=== PATIENT | female | born 1955 | race Caucasian/White ===

== ENCOUNTER 2019-06-25 10:07 | Emergency (ER) | payer SELFPAY ==
[2019-06-25] MEDS ORDERED: Ondansetron 4 MG/2 ML SDV IVPUSH ONE (10:11)
[2019-06-25] MEDS ORDERED: Sodium Chloride 0.9% 1,000 ML IV ONE ×2 (10:11→11:47)
[2019-06-25] MEDS ORDERED: Sodium Chloride 0.9% 10 ML Syringe FLUSH PRN (10:19)
--- NOTE | 2019-06-25 10:31 | CT ---
[id number] CT/CT Head Stroke Protocol Exam: CT Head Stroke Protocol Clinical Data: NEUROLOGIC DEFICIT COMPARISON: NO PREVIOUS SIMILAR EXAM IS AVAILABLE FINDINGS: There is no mass or mass effect There is no hemorrhage or hydrocephalus There are no extra-axial fluid collections CT angiography would be helpful Report was called at time of this dictation There are no sites of abnormal attenuation IMPRESSION: NEGATIVE PLAIN CT BRAIN Rickey Martins MD 06/25/19 1030 Thank you for allowing us to participate in the care of your patient.
--- NOTE | 2019-06-25 10:37 | CR ---
[id number] RAD/RAD Chest PA or AP 1V EXAM: RAD Chest PA or AP 1V INDICATION: SYNCOPE. COMPARISON: None. DISCUSSION: Cardiomediastinal silhouette is normal in size and contour. No infiltrate, effusion, pneumothorax, or edema. IMPRESSION: Negative examination of the chest. Jean Claude Teresa MD 06/25/19 1036 Thank you for allowing us to participate in the care of your patient.
[2019-06-25 10:47] LABS: ANION GAP 21.6 mmol/L (5-15); CHLORIDE,CL 100 mmol/L (98-115); SODIUM,NA 138 mmol/L (136-145)
--- NOTE | 2019-06-25 11:23 | EDM.PDOC ---
ED HPI GENERAL MEDICAL PROBLEM - General Chief Complaint: General Stated Complaint: UNRESPONSIVE ON [employer]AS [employer]ATION FLOOR Time Seen by Provider: 06/25/19 10:15 Source of Information: Reports: Patient, EMS, EMS Notes Reviewed History Limitations: Reports: No Limitations - History of Present Illness INITIAL COMMENTS - FREE TEXT/NARRATIVE: Patient is a 63-year-old female who presents to the emergency department via EMS for complaint of syncopal episode. Patient was found in the bathroom of local gas station unconscious. EMS was contacted and patient spontaneously awoke. Patient was said to BE confused per EMS. Upon presentation to the emergency Department, patient is alert, awake, oriented and is well known to me. 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 Last she remembers was going into the bathroom. Patient states that she has insomnia, however, does not take any sleeping medication. Currently, patient denies headache, dizziness, blurry vision, nausea, vomiting, diarrhea, abdominal pain, fever, or any discomfort. Onset: Today, Sudden Duration: Improving Severity: Mild Improves with: Reports: Other (Spontaneously) Worsens with: Reports: None Context: Denies: Trauma Associated Symptoms: Reports: Nausea/Vomiting, Syncope. Denies: Chest Pain, Diaphoresis, Fever/Chills, Headaches, Seizure, Shortness of Breath - Related Data Allergies Allergy/AdvReac Type Severity Reaction Status Date / Time No Known Drug Allergies Allergy Other Verified 06/25/19 10:19 Home Meds: Home Meds Acetaminophen/Caffeine [Excedrin Tension Headache Cplt] 3 tab PO Q6HR 06/25/19 [ History] Bismuth Subsalicylate [Pepto Bismol] 30 ml PO Q6HR PRN 06/25/19 [History] SUMAtriptan Succinate [Imitrex] 50 mg PO Q6HR 06/25/19 [History] Past Medical History HEENT History: Reports: None Cardiovascular History: Reports: None Respiratory History: Reports: Asthma, COPD Gastrointestinal History: Reports: None Genitourinary History: Reports: None BINDERY ASSISTANT History: Reports: None Musculoskeletal History: Reports: None Neurological History: Reports: Migraines Psychiatric History: Reports: None Endocrine/Metabolic History: Reports: None Hematologic History: Reports: None Immunologic History: Reports: None Oncologic (Cancer) History: Reports: None Dermatologic History: Reports: None - Infectious Disease History Infectious Disease History: Reports: None - Past Surgical History Head Surgeries/Procedures: Reports: None Social & Family History - Tobacco Use Smoking Status *Q: Current Every Day Smoker Years of Tobacco use: 25 Packs/Tins Daily: 0.1 - Recreational Drug Use Recreational Drug Use: Yes Drug Use in Last 12 Months: Yes Recreational Drug Type: Reports: Marijuana/Hashish ED ROS GENERAL - Review of Systems Review Of Systems: Comprehensive ROS is negative, except as noted in HPI. Constitutional: Reports: No Symptoms HEENT: Reports: No Symptoms Respiratory: Reports: No Symptoms Cardiovascular: Reports: No Symptoms Endocrine: Reports: No Symptoms GI/Abdominal: Reports: Nausea. Denies: Vomiting : Reports: No Symptoms Musculoskeletal: Reports: No Symptoms Skin: Reports: No Symptoms Neurological: Reports: Weakness Psychiatric: Reports: No Symptoms Hematologic/Lymphatic: Reports: No Symptoms Immunologic: Reports: No Symptoms ED EXAM, GENERAL - Physical Exam Exam: See Below Exam Limited By: No Limitations General Appearance: Alert, WD/WN, No Apparent Distress, Lethargic Eye Exam: Bilateral Eye: Normal Inspection Nose: Normal Inspection, Normal Mucosa, No Blood Throat/Mouth: Normal Inspection, Normal Oropharynx, No Airway Compromise Head: Atraumatic, Normocephalic Neck: Normal Inspection, Supple, Non-Tender, Full Range of Motion Respiratory/Chest: No Respiratory Distress, Lungs Clear, Normal Breath Sounds, No Accessory Muscle Use, Chest Non-Tender Cardiovascular: Normal Peripheral Pulses, Regular Rate, Rhythm, No Murmur GI/Abdominal: Normal Bowel Sounds, Soft, Non-Tender, No Organomegaly, No Distention, No Abnormal Bruit, No Mass, Pelvis Stable Back Exam: Normal Inspection. No: CVA Tenderness (L), CVA Tenderness (R) Extremities: Normal Inspection, No Pedal Edema Neurological: Alert, Oriented, CN II-XII Intact, No Motor/Sensory Deficits Psychiatric: Normal Affect, Normal Mood Skin Exam: Warm, Dry, Intact, Normal Color, No Rash Lymphatic: No Adenopathy EKG INTERPRETATION EKG Date: 06/25/19 Time: 10:20 Rhythm: NSR Rate (Beats/Min): 95 [place]: Normal P-Wave: Present QRS: Normal ST-T: Normal QT: Normal Comparison: NA - No Prior EKG Course - Vital Signs Last Recorded V/S: Last Vital Signs Temp 97.3 F 02/11/20 11:02 Pulse 82 06/25/19 12:19 Resp 16 06/25/19 11:02 BP 126/82 06/25/19 12:19 Pulse Ox 99 06/25/19 11:02 - Orders/Labs/Meds Orders: Active Orders 24 hr Category Date Time Status EKG Documentation Completion [RC] ASDIRECTED Care 06/25/19 10:11 Active Sodium Chloride 0.9% @ 999 MLS/HR (1000ml) Med 06/25/19 11:47 Ordered Sodium Chloride 0.9% [Normal Saline] 1,000 ml IV .BOLUS Sodium Chloride 0.9% [Saline Flush] Med 06/25/19 10:19 Active 10 ml FLUSH Q8HR PRN Saline Lock Insert [OM.PC] Routine Oth 06/25/19 10:19 Ordered EKG 12 Lead [EK] Routine Ther 06/25/19 10:11 Ordered Medication Orders Sodium Chloride (Normal Saline) 1,000 mls @ 999 mls/hr IV .BOLUS ONE Stop: 06/25/19 12:47 Sodium Chloride (Saline Flush) 10 ml FLUSH Q8HR PRN PRN Reason: keep vein open Labs: Laboratory Tests 06/25/19 06/25/19 06/25/19 Range/Units 10:15 10:15 12:05 WBC 8.78 (5.00-10.00) 10^3/uL RBC 4.31 (3.80-5.50) 10^6/uL Hgb 12.8 (12.0-16.0) g/dL Hct 38.1 (37.0-47.0) % MCV 88.4 (82.0-92.0) fL MCH 29.7 (27.0-31.0) pg MCHC 33.6 (32.0-36.0) g/dL RDW 12.3 (11.5-14.5) % Plt Count 223 (150-400) 10^3/uL MPV 12.3 H (7.4-10.4) fL Immature Gran % (Auto) 0.1 (0.0-5.0) % Neut % (Auto) 41.3 L (50.0-70.0) % Lymph % (Auto) 51.7 H (20.0-40.0) % Nolan % (Auto) 5.6 (2.0-8.0) % Eos % (Auto) 1.0 (1.0-3.0) % Baso % (Auto) 0.3 (0.0-1.0) % Immature Gran # (Auto) 0.01 (0.00-0.50) 10^3/uL Neut # (Auto) 3.62 (2.50-7.00) 10^3/uL Lymph # (Auto) 4.54 H (1.00-4.00) 10^3/uL Nolan # (Auto) 0.49 (0.10-0.80) 10^3/uL Eos # (Auto) 0.09 L (0.10-0.30) 10^3/uL Baso # (Auto) 0.03 (0.00-0.10) 10^3/uL Sodium 138 (136-145) mmol/L Potassium 3.2 L (3.3-5.3) mmol/L Chloride 100 (98-115) mmol/L Carbon Dioxide 19.6 L (21.0-32.0) mmol/L Anion Gap 21.6 H (5-15) mmol/L BUN 18 (6-25) mg/dL Creatinine 1.01 (0.51-1.17) mg/dL Est Cr Clr Drug Dosing TNP Estimated GFR (MDRD) 56 mL/min Glucose 199 H (75 - 99) mg/dL Calcium 8.9 (8.7-10.3) mg/dL Total Bilirubin 0.6 (0.2-1.0) mg/dL AST 15 (15-37) U/L ALT 19 (12-78) U/L Alkaline Phosphatase 73 (46-116) IU/L Troponin I 0.06 (0.00-0.070) ng/mL Total Protein 7.3 (6.4-8.2) g/dL Albumin 3.96 (3.00-4.80) g/dL Urine Opiates Screen Negative (NEGATIVE) Ur Oxycodone Screen Negative (NEGATIVE) Urine Methadone Screen Negative (NEGATIVE) Ur Propoxyphene Screen Negative (NEGATIVE) Ur Barbiturates Screen Negative (NEGATIVE) Ur Tricyclics Screen Negative (NEGATIVE) Ur Phencyclidine Scrn Negative (NEGATIVE) Ur Amphetamine Screen Negative (NEGATIVE) U Methamphetamines Scrn Negative (NEGATIVE) U Benzodiazepines Scrn Negative (NEGATIVE) U Cocaine Metab Screen Negative (NEGATIVE) U Marijuana (THC) Screen Positive H (NEGATIVE) Meds: Medications Generic Name Dose Route Start Last Admin Trade Name Freq PRN Reason Stop Dose Admin Sodium Chloride 1,000 mls @ 999 mls/hr 06/25/19 11:47 Normal Saline IV 06/25/19 12:47 .BOLUS ONE Sodium Chloride 10 ml 06/25/19 10:19 Saline Flush FLUSH Q8HR PRN keep vein open Discontinued Medications Generic Name Dose Route Start Last Admin Trade Name Freq PRN Reason Stop Dose Admin Sodium Chloride 1,000 mls @ 999 mls/hr 06/25/19 10:11 06/25/19 10:15 Normal Saline IV 06/25/19 11:11 999 mls/hr .BOLUS ONE Administration Ondansetron HCl 4 mg 06/25/19 10:11 06/25/19 10:10 Zofran IVPUSH 06/25/19 10:12 4 mg ONETIME ONE Administration - Radiology Interpretation Free Text/Narrative:: CT head shows no acute intracranial process CT Results Date: 06/25/19 - Re-Assessments/Exams Free Text/Narrative Re-Assessment/Exam: 06/25/19 12:35 Patient afebrile, vital signs stable, denies chest pain, shortness of breath, headache, dizziness, or blurry vision. Discussed with patient concern for symptoms and condition and recommended admission for evaluation. Patient denied admission and is requesting to go home. She'll leave AGAINST MEDICAL ADVICE. Departure - Departure Time of Disposition: 12:37 Disposition: Home, Self-Care 01 Clinical Impression: Hyperglycemia Syncope Qualifiers: Syncope type: unspecified Qualified Code(s): R55 - Syncope and collapse Insomnia Qualifiers: Insomnia type: unspecified Qualified Code(s): G47.00 - Insomnia, unspecified - Discharge Information Instructions: Hyperglycemia, [id number], Syncope, [id number] Referrals: Francie Strickland MD [Primary Care Provider] - Forms: ED Department Discharge Additional Instructions: Follow-up with Dr. Spear in one to 2 days. Return to emergency department sooner symptoms continue or worsen. Sepsis Event Note - Evaluation Sepsis Screening Result: No Definite Risk - Focused Exam Vital Signs: Vital Signs Temp Pulse Resp BP Pulse Ox 06/25/19 12:19 82 126/82 06/25/19 11:15 136/61 06/25/19 11:02 97.3 F 84 16 156/75 H 99 06/25/19 10:30 97.2 F 88 14 156/75 H 98 06/25/19 10:10 97.9 F 132 H 16 171/102 H 99 Date Exam was Performed: 06/25/19 Time Exam was Performed: 12:35 - My Orders Last 24 Hours: My Active Orders 06/25/19 10:11 EKG Documentation Completion [RC] ASDIRECTED EKG 12 Lead [EK] Routine 06/25/19 10:19 Sodium Chloride 0.9% [Saline Flush] 10 ml FLUSH Q8HR PRN Saline Lock Insert [OM.PC] Routine 06/25/19 11:47 Sodium Chloride 0.9% @ 999 MLS/HR (1000ml) Sodium Chloride 0.9% [Normal Saline] 1,000 ml IV .BOLUS - Assessment/Plan Last 24 Hours: My Active Orders 06/25/19 10:11 EKG Documentation Completion [RC] ASDIRECTED EKG 12 Lead [EK] Routine 06/25/19 10:19 Sodium Chloride 0.9% [Saline Flush] 10 ml FLUSH Q8HR PRN Saline Lock Insert [OM.PC] Routine 06/25/19 11:47 Sodium Chloride 0.9% @ 999 MLS/HR (1000ml) Sodium Chloride 0.9% [Normal Saline] 1,000 ml IV .BOLUS Assessment:: Syncopal episode Plan: Declined admission. Discharge home
[2019-06-25 12:22] LABS: BARBITURATE SCREEN,URINE NEGATIVE (NEGATIVE); BENZODIAZEPINES SCREEN,URINE NEGATIVE (NEGATIVE); TCA SCREEN,URINE NEGATIVE (NEGATIVE); THC SCREEN,URINE 50 NG/ML POSITIVE (NEGATIVE)
== END 2019-06-25 12:55 | disposition home or self-care (01) ==
LOC: KA.ED 10:07
DX: R55 Syncope and collapse (principal); G47.00 Insomnia, unspecified; R73.9 Hyperglycemia, unspecified; R11.2 Nausea with vomiting, unspecified; F17.210 Nicotine dependence, cigarettes, uncomplicated; J44.9 Chronic obstructive pulmonary disease, unspecified; Z79.899 Other long term (current) drug therapy
CPT/HCPCS: 36415; 70450; 71045; 80053; 80305; 84484; 85025; 93005; 96361; 96374; 99285; J2405; J7030; 99284